=== PATIENT | female | born 1940 | race Caucasian/White ===

== ENCOUNTER 2022-12-20 21:00 | Inpatient (IN) | payer OTHER, BC ==
[2022-12-20 21:45] LABS: BASO % 0.2 % (0-2.0); EOS % 0.1 % (0-4.5); HEMATOCRIT 17.7 % (32.4-45.2); LYMPH % 7.9 % (8-40); MCH 30.5 pg (25.7-33.7); MEAN CELL VOLUME 92.4 fl (80-96); MONO % 4.5 % (3.8-10.2); NEUT % 87.3 % (42.8-82.8); PLATELET COUNT 148 10^3/uL (134-434); RBC 1.92 M/mm3 (3.60-5.2); RDW 17.4 % (11.6-15.6); WHITE BLOOD COUNT 18.1 K/mm3 (4.0-10.0)
[2022-12-20 21:52] LABS: HEMOGLOBIN 5.9 GM/dL (10.7-15.3)
[2022-12-20 21:59] LABS: ACTIVATED PTT 26.1 SECONDS (25.2-36.5); INR 1.1 (0.83-1.09); PROTHROMBIN TIME (PATIENT) 12.7 SEC (9.7-13.0)
[2022-12-20] MEDS ORDERED: VANCOMYCIN 1 GM/200 ML PREMIX BAG (RESTRICTED TO ID ONLY) IVPB ONE (22:01)
[2022-12-20] MEDS ORDERED: VANCOMYCIN 1 GM in D5W (PRE-DOCKED) 1,000 MG/250 ML IVPB ONE (22:01)
[2022-12-20] MEDS ORDERED: ACETAMINOPHEN 1000 MG/100 ML BAG IVPB ONE (22:02)
[2022-12-20] MEDS ORDERED: PIPERACILLIN/TAZOB 4.5 GM 4.5 GM in DEXTROSE 5%-WATER 100 ML IVPB ONE (22:02)
[2022-12-20 22:11] LABS: ALBUMIN 1.9 g/dl (3.4-5.0); BLOOD UREA NITROGEN 76.5 mg/dL (7-18); CALCIUM 7.9 mg/dL (8.5-10.1)
[2022-12-20 22:15] LABS: CREATININE 3.7 mg/dL (0.55-1.3)
[2022-12-20 22:16] LABS: BILIRUBIN,TOTAL 0.4 mg/dL (0.2-1); TOT PROT 5.7 g/dl (6.4-8.2)
[2022-12-20] MEDS ORDERED: PIPERACILLIN/TAZOB 4.5 GM 4.5 GM/100 ML BAG IVPB ONE (22:33)
[2022-12-20] MEDS ORDERED: VANCOMYCIN/WATER FOR INJ (PEG) 1,000 MG/200 ML BAG IVPB ONE (22:35)
[2022-12-20] MEDS: LACTATED RINGERS SOLUTION 1,000 ML/1,000 ML INFUS.BAG IV STA (22:49)
[2022-12-20 23:11] LABS: N-TERMINAL BNP 3385.7 pg/ml (5-450)
[2022-12-20 23:12] LABS: EPI CELLS 4 /uL (0-25.1); HYALINE CASTS 0 /uL (0-3.1); PH,URINE 5.5 (5.0-8.0); URINE APPEARANCE CLOUDY; URINE BACTERIA 8092 /uL (0-1359); URINE BILIRUBIN NEGATIVE (NEGATIVE); URINE COLOR YELLOW; URINE GLUCOSE (UA) NEGATIVE (NEGATIVE); URINE KETONE NEGATIVE (NEGATIVE); URINE LEUK ESTERASE 2+ (NEGATIVE); URINE NITRITE NEGATIVE (NEGATIVE); URINE PROTEIN 2+ (NEGATIVE); URINE UROBILINOGEN 0.2 mg/dL (0.2-1.0); URINE WBC 1092 /uL (0-25.8)
[2022-12-20] MEDS ORDERED: ALBUTEROL SO4 2.5/IPRATROPIUM 0.5 INH SOL 3 ML VIAL.NEB. NEB SCH (23:15)
[2022-12-20 23:16] LABS: URINE RBC 30.6 /uL (0-23.9)
[2022-12-21] MEDS: LACTATED RINGERS SOLUTION 1,000 ML/1,000 ML INFUS.BAG IV STA (02:13)
[2022-12-21] MEDS ORDERED: MEROPENEM 500 MG in DEXTROSE 5%-WATER 100 ML IVPB ONE (02:31)
[2022-12-21] MEDS ORDERED: MEROPENEM 500 MG VIAL (RESTRICTED TO ID) IVPB ONE (03:07)
[2022-12-21] MEDS ORDERED: DEXTROSE 5% IVPB ONE (03:30)
[2022-12-21] MEDS ORDERED: GENTAMICIN IVPB ONE (03:30)
[2022-12-21] MEDS ORDERED: WATER IVPB ONE (03:30)
[2022-12-21] MEDS ORDERED: ACETAMINOPHEN 325 MG TABLET (FP) PO PRN ×2 (03:47→21:24)
[2022-12-21 04:07] LABS: HEMATOCRIT 21.6 % (32.4-45.2); HEMOGLOBIN 7.1 GM/dL (10.7-15.3); MCH 30.7 pg (25.7-33.7); MCHC 33.1 g/dl (32.0-36.0); MEAN CELL VOLUME 92.8 fl (80-96); PLATELET COUNT 117 10^3/uL (134-434); RBC 2.33 M/mm3 (3.60-5.2); RDW 16.6 % (11.6-15.6); WHITE BLOOD COUNT 17.5 K/mm3 (4.0-10.0)
[2022-12-21] MEDS: SODIUM CHLORIDE 1,000 ML IV SCH ×2 (05:06→21:00)
[2022-12-21 06:52] LABS: ANISOCYTOSIS 1+; MACROCYTOSIS 0; OVALOCYTE 2+; TEAR DROP CELLS 2+
[2022-12-21] MEDS: INSULIN SLIDING SCALE (NOVOLOG) 1 VIAL SQ SCH ×5 (08:34→21:15)
[2022-12-21] MEDS ORDERED: PANTOPRAZOLE 40 MG TABLET PO SCH (10:00)
[2022-12-21] MEDS: MUPIROCIN 2% TOPICAL OINTMENT FOR DECOLONIZATION NS SCH ×3 (11:30→21:15)
[2022-12-21 14:00] LABS: HEMATOCRIT 21.5 % (32.4-45.2); MCH 30.3 pg (25.7-33.7); MCHC 32.7 g/dl (32.0-36.0); MEAN CELL VOLUME 92.7 fl (80-96); MEAN PLT VOLUME 10.3 fl (7.5-11.1); PLATELET COUNT 97 10^3/uL (134-434); RBC 2.32 M/mm3 (3.60-5.2); RDW 16.5 % (11.6-15.6); WHITE BLOOD COUNT 11.9 K/mm3 (4.0-10.0)
[2022-12-21] MEDS ORDERED: MEROPENEM 500 MG in DEXTROSE 5%-WATER 100 ML IVPB SCH (20:00)
[2022-12-21] MEDS ORDERED: BISACODYL 10 MG SUPP.RECT PR ONE (20:33)
[2022-12-21] MEDS ORDERED: SODIUM CHLORIDE 1,000 ML IV SCH (21:24)
[2022-12-21 21:31] LABS: BASO % 0.2 % (0-2.0); EOS % 0.7 % (0-4.5); HEMATOCRIT 19.4 % (32.4-45.2); LYMPH % 7.6 % (8-40); MCH 30.9 pg (25.7-33.7); MCHC 33.6 g/dl (32.0-36.0); MEAN PLT VOLUME 9.5 fl (7.5-11.1); MONO % 4.6 % (3.8-10.2); NEUT % 86.9 % (42.8-82.8); PLATELET COUNT 84 10^3/uL (134-434); RBC 2.11 M/mm3 (3.60-5.2); RDW 16.2 % (11.6-15.6); WHITE BLOOD COUNT 9.6 K/mm3 (4.0-10.0)
[2022-12-21 21:36] LABS: HEMOGLOBIN 6.5 GM/dL (10.7-15.3)
[2022-12-21 21:52] LABS: CALCIUM 7.7 mg/dL (8.5-10.1)
[2022-12-21 21:53] LABS: ALBUMIN 1.8 g/dl (3.4-5.0); BLOOD UREA NITROGEN 75.6 mg/dL (7-18); MAGNESIUM 1.9 mg/dL (1.8-2.4)
[2022-12-21 21:56] LABS: CREATININE 3.3 mg/dL (0.55-1.3); PHOSPHOROUS 4.6 mg/dL (2.5-4.9)
[2022-12-21 21:58] LABS: BILIRUBIN,TOTAL 0.4 mg/dL (0.2-1); TOT PROT 5.3 g/dl (6.4-8.2)
[2022-12-21] MEDS ORDERED: CHLORHEXIDINE GLUCONATE 4% CLEANSER FOR DECOLONIZATION TP SCH ×3 (22:00)
[2022-12-21] MEDS ORDERED: MUPIROCIN 2% TOPICAL OINTMENT FOR DECOLONIZATION NS SCH (22:00)
[2022-12-22] MEDS: INSULIN SLIDING SCALE (NOVOLOG) 1 VIAL SQ SCH ×4 (07:30→22:06)
[2022-12-22 07:32] LABS: HEMATOCRIT 24.6 % (32.4-45.2); HEMOGLOBIN 8.3 GM/dL (10.7-15.3); MCH 31.3 pg (25.7-33.7); MCHC 33.8 g/dl (32.0-36.0); MEAN CELL VOLUME 92.7 fl (80-96); MEAN PLT VOLUME 10.3 fl (7.5-11.1); PLATELET COUNT 89 10^3/uL (134-434); RBC 2.65 M/mm3 (3.60-5.2); RDW 15.5 % (11.6-15.6)
[2022-12-22 07:41] LABS: CALCIUM 7.9 mg/dL (8.5-10.1)
[2022-12-22 07:42] LABS: ALBUMIN 1.8 g/dl (3.4-5.0); BLOOD UREA NITROGEN 71.8 mg/dL (7-18); MAGNESIUM 2.1 mg/dL (1.8-2.4)
[2022-12-22 07:44] LABS: PHOSPHOROUS 4.6 mg/dL (2.5-4.9)
[2022-12-22 07:45] LABS: CREATININE 3.1 mg/dL (0.55-1.3)
[2022-12-22 07:46] LABS: BILIRUBIN,TOTAL 0.4 mg/dL (0.2-1); TOT PROT 5.5 g/dl (6.4-8.2)
[2022-12-22] MEDS ORDERED: MEROPENEM 500 MG in DEXTROSE 5%-WATER 100 ML IVPB SCH ×2 (09:00→22:00)
[2022-12-22] MEDS: MUPIROCIN 2% TOPICAL OINTMENT FOR DECOLONIZATION NS SCH (09:27)
[2022-12-22 09:57] LABS: EPI CELLS 3 /uL (0-25.1); HYALINE CASTS 1 /uL (0-3.1); PH,URINE 5.5 (5.0-8.0); URINE APPEARANCE CLEAR; URINE BACTERIA 11 /uL (0-1359); URINE BILIRUBIN NEGATIVE (NEGATIVE); URINE COLOR ORANGE; URINE GLUCOSE (UA) NEGATIVE (NEGATIVE); URINE KETONE NEGATIVE (NEGATIVE); URINE LEUK ESTERASE 1+ (NEGATIVE); URINE NITRITE NEGATIVE (NEGATIVE); URINE PROTEIN 2+ (NEGATIVE); URINE RBC 6349 /uL (0-23.9); URINE UROBILINOGEN 0.2 mg/dL (0.2-1.0); URINE WBC 22 /uL (0-25.8)
[2022-12-22] MEDS ORDERED: PANTOPRAZOLE 40 MG TABLET PO SCH (10:00)
[2022-12-22] MEDS ORDERED: POLYETHYLENE GLYCOL (HEALTHYLAX) 3350 17 GM PACKET PO SCH (10:00)
[2022-12-22] MEDS ORDERED: SODIUM CHLORIDE 1,000 ML IV SCH (21:16)
[2022-12-22] MEDS: POLYETHYLENE GLYCOL (HEALTHYLAX) 3350 17 GM PACKET PO SCH (21:55)
[2022-12-22] MEDS: MEROPENEM 500 MG in DEXTROSE 5%-WATER 100 ML IVPB SCH (21:56)
[2022-12-22] MEDS ORDERED: MUPIROCIN 2% TOPICAL OINTMENT FOR DECOLONIZATION NS SCH (22:00)
[2022-12-22] MEDS ORDERED: CHLORHEXIDINE GLUCONATE 4% CLEANSER FOR DECOLONIZATION TP SCH (22:00)
[2022-12-23] MEDS: INSULIN SLIDING SCALE (NOVOLOG) 1 VIAL SQ SCH ×4 (06:44→22:55)
[2022-12-23 09:20] LABS: BASO % 0.4 % (0-2.0); EOS % 1.4 % (0-4.5); HEMATOCRIT 25.1 % (32.4-45.2); HEMOGLOBIN 8.4 GM/dL (10.7-15.3); LYMPH % 8.5 % (8-40); MCH 30.9 pg (25.7-33.7); MCHC 33.5 g/dl (32.0-36.0); MEAN CELL VOLUME 92.3 fl (80-96); MEAN PLT VOLUME 9.8 fl (7.5-11.1); MONO % 7.8 % (3.8-10.2); NEUT % 81.9 % (42.8-82.8); PLATELET COUNT 109 10^3/uL (134-434); RBC 2.72 M/mm3 (3.60-5.2); RDW 15.4 % (11.6-15.6); WHITE BLOOD COUNT 7.2 K/mm3 (4.0-10.0)
[2022-12-23] MEDS: MEROPENEM 500 MG in DEXTROSE 5%-WATER 100 ML IVPB SCH (09:36)
[2022-12-23] MEDS: POLYETHYLENE GLYCOL (HEALTHYLAX) 3350 17 GM PACKET PO SCH ×2 (09:37→21:01)
[2022-12-23] MEDS: PANTOPRAZOLE 40 MG TABLET PO SCH (09:37)
[2022-12-23 09:48] LABS: ALBUMIN 1.8 g/dl (3.4-5.0); BLOOD UREA NITROGEN 60.7 mg/dL (7-18)
[2022-12-23 09:50] LABS: CREATININE 2.3 mg/dL (0.55-1.3)
[2022-12-23 09:52] LABS: TOT PROT 5.7 g/dl (6.4-8.2)
[2022-12-23 09:53] LABS: BILIRUBIN,TOTAL 0.5 mg/dL (0.2-1)
[2022-12-23] MEDS: SODIUM CHLORIDE 0.45% 1,000 ML IV SCH (13:00)
[2022-12-23] MEDS ORDERED: VANCOMYCIN/WATER FOR INJ (PEG) 1,000 MG/200 ML BAG IVPB ONE (13:30)
[2022-12-23] MEDS: ERTAPENEM SODIUM 0.5 GM in SODIUM CHLORIDE 50 ML IVPB SCH (15:15)
[2022-12-23] MEDS: ACETAMINOPHEN 325 MG TABLET (FP) PO PRN (21:01)
[2022-12-24] MEDS: INSULIN SLIDING SCALE (NOVOLOG) 1 VIAL SQ SCH ×4 (06:51→21:42)
[2022-12-24] MEDS: ERTAPENEM SODIUM 0.5 GM in SODIUM CHLORIDE 50 ML IVPB SCH (09:17)
[2022-12-24] MEDS: PANTOPRAZOLE 40 MG TABLET PO SCH (09:43)
[2022-12-24] MEDS: SODIUM CHLORIDE 0.45% 1,000 ML IV SCH ×3 (09:43→23:24)
[2022-12-24] MEDS: POLYETHYLENE GLYCOL (HEALTHYLAX) 3350 17 GM PACKET PO SCH ×2 (09:43→21:47)
[2022-12-24] MEDS: ACETAMINOPHEN 325 MG TABLET (FP) PO PRN (16:02)
[2022-12-24 16:28] VITALS: BMI 32.9
[2022-12-24] MEDS: AMPICILLIN - 2 GM in SODIUM CHLORIDE 100 ML IVPB SCH (17:35)
[2022-12-24 19:22] LABS: BASO % 0.3 % (0-2.0); EOS % 1.9 % (0-4.5); HEMATOCRIT 23.3 % (32.4-45.2); HEMOGLOBIN 7.8 GM/dL (10.7-15.3); LYMPH % 10.8 % (8-40); MCH 30.9 pg (25.7-33.7); MCHC 33.4 g/dl (32.0-36.0); MEAN CELL VOLUME 92.4 fl (80-96); MEAN PLT VOLUME 10.1 fl (7.5-11.1); MONO % 7.8 % (3.8-10.2); NEUT % 79.2 % (42.8-82.8); PLATELET COUNT 133 10^3/uL (134-434); RBC 2.52 M/mm3 (3.60-5.2); RDW 15.2 % (11.6-15.6); WHITE BLOOD COUNT 9.2 K/mm3 (4.0-10.0)
[2022-12-24 19:49] LABS: BLOOD UREA NITROGEN 44.6 mg/dL (7-18); CALCIUM 7.9 mg/dL (8.5-10.1)
[2022-12-24 19:50] LABS: ALBUMIN 1.7 g/dl (3.4-5.0)
[2022-12-24 19:53] LABS: CREATININE 1.8 mg/dL (0.55-1.3)
[2022-12-24 19:54] LABS: BILIRUBIN,TOTAL 0.6 mg/dL (0.2-1); TOT PROT 5.4 g/dl (6.4-8.2)
[2022-12-24 20:48] LABS: ANISOCYTOSIS 2+; MACROCYTOSIS 0; OVALOCYTE 1+; TEAR DROP CELLS 1+
[2022-12-25] MEDS: AMPICILLIN - 2 GM in SODIUM CHLORIDE 100 ML IVPB SCH ×3 (05:42→21:46)
[2022-12-25] MEDS: INSULIN SLIDING SCALE (NOVOLOG) 1 VIAL SQ SCH ×4 (06:43→21:56)
[2022-12-25] MEDS: ERTAPENEM SODIUM 0.5 GM in SODIUM CHLORIDE 50 ML IVPB SCH (09:12)
[2022-12-25] MEDS: PANTOPRAZOLE 40 MG TABLET PO SCH (09:12)
[2022-12-25] MEDS: POLYETHYLENE GLYCOL (HEALTHYLAX) 3350 17 GM PACKET PO SCH ×2 (09:12→21:47)
[2022-12-25 09:28] LABS: BASO % 0.5 % (0-2.0); EOS % 1.3 % (0-4.5); HEMATOCRIT 25.1 % (32.4-45.2); HEMOGLOBIN 8.3 GM/dL (10.7-15.3); LYMPH % 7.9 % (8-40); MCH 30.7 pg (25.7-33.7); MCHC 33.3 g/dl (32.0-36.0); MEAN CELL VOLUME 92.2 fl (80-96); MEAN PLT VOLUME 10.4 fl (7.5-11.1); MONO % 7.9 % (3.8-10.2); NEUT % 82.4 % (42.8-82.8); PLATELET COUNT 154 10^3/uL (134-434); RBC 2.72 M/mm3 (3.60-5.2); RDW 15.3 % (11.6-15.6); WHITE BLOOD COUNT 9.8 K/mm3 (4.0-10.0)
[2022-12-25 09:48] LABS: BLOOD UREA NITROGEN 39.5 mg/dL (7-18); CALCIUM 8.1 mg/dL (8.5-10.1)
[2022-12-25 09:49] LABS: ALBUMIN 1.7 g/dl (3.4-5.0)
[2022-12-25 09:51] LABS: CREATININE 1.7 mg/dL (0.55-1.3)
[2022-12-25 09:53] LABS: BILIRUBIN,TOTAL 0.8 mg/dL (0.2-1); TOT PROT 5.6 g/dl (6.4-8.2)
[2022-12-25] MEDS ORDERED: INSULIN (NOVOLOG) ASPART 100 UNITS/ML 10ML VIAL ONE (11:51)
[2022-12-25] MEDS: SODIUM CHLORIDE 0.45% 1,000 ML IV SCH ×2 (11:55→21:46)
[2022-12-25] MEDS ORDERED: ACETAMINOPHEN 1000 MG/100 ML BAG IVPB ONE (15:26)
[2022-12-25] MEDS ORDERED: VANCOMYCIN 1 GM/200 ML PREMIX BAG (RESTRICTED TO ID ONLY) IVPB ONE (15:33)
[2022-12-25 18:52] LABS: HEMATOCRIT 22.7 % (32.4-45.2); HEMOGLOBIN 7.6 GM/dL (10.7-15.3); MCH 30.9 pg (25.7-33.7); MCHC 33.4 g/dl (32.0-36.0); MEAN CELL VOLUME 92.5 fl (80-96); MEAN PLT VOLUME 9.9 fl (7.5-11.1); PLATELET COUNT 139 10^3/uL (134-434); RBC 2.45 M/mm3 (3.60-5.2); RDW 15.6 % (11.6-15.6); WHITE BLOOD COUNT 9.5 K/mm3 (4.0-10.0)
[2022-12-26 00:58] LABS: HEMATOCRIT 22.6 % (32.4-45.2); HEMOGLOBIN 7.7 GM/dL (10.7-15.3); MCH 31.3 pg (25.7-33.7); MEAN CELL VOLUME 92.1 fl (80-96); MEAN PLT VOLUME 9.4 fl (7.5-11.1); PLATELET COUNT 147 10^3/uL (134-434); RBC 2.45 M/mm3 (3.60-5.2); RDW 15.3 % (11.6-15.6); WHITE BLOOD COUNT 9.6 K/mm3 (4.0-10.0)
[2022-12-26] MEDS: AMPICILLIN - 2 GM in SODIUM CHLORIDE 100 ML IVPB SCH ×3 (05:39→22:00)
[2022-12-26] MEDS: INSULIN SLIDING SCALE (NOVOLOG) 1 VIAL SQ SCH ×4 (06:44→22:01)
[2022-12-26 08:55] LABS: HEMATOCRIT 23.4 % (32.4-45.2); HEMOGLOBIN 7.9 GM/dL (10.7-15.3); MCH 31.5 pg (25.7-33.7); MCHC 33.8 g/dl (32.0-36.0); MEAN CELL VOLUME 93.3 fl (80-96); MEAN PLT VOLUME 10.1 fl (7.5-11.1); PLATELET COUNT 156 10^3/uL (134-434); RDW 15.7 % (11.6-15.6); WHITE BLOOD COUNT 10.2 K/mm3 (4.0-10.0)
[2022-12-26] MEDS: PANTOPRAZOLE 40 MG TABLET PO SCH (10:57)
[2022-12-26] MEDS: POLYETHYLENE GLYCOL (HEALTHYLAX) 3350 17 GM PACKET PO SCH ×2 (10:57→22:01)
[2022-12-26] MEDS: ERTAPENEM SODIUM 1 GM in SODIUM CHLORIDE 50 ML IVPB SCH (11:03)
[2022-12-26] MEDS ORDERED: INSULIN (NOVOLOG) ASPART 100 UNITS/ML 10ML VIAL ONE (11:37)
[2022-12-26] MEDS: ACETAMINOPHEN 325 MG TABLET (FP) PO PRN ×2 (14:01→22:43)
[2022-12-26 14:04] LABS: HEMATOCRIT 24.4 % (32.4-45.2); HEMOGLOBIN 8.2 GM/dL (10.7-15.3); MCH 30.9 pg (25.7-33.7); MCHC 33.4 g/dl (32.0-36.0); MEAN CELL VOLUME 92.8 fl (80-96); MEAN PLT VOLUME 10.4 fl (7.5-11.1); PLATELET COUNT 162 10^3/uL (134-434); RBC 2.63 M/mm3 (3.60-5.2); RDW 15.2 % (11.6-15.6); WHITE BLOOD COUNT 10.7 K/mm3 (4.0-10.0)
[2022-12-26] MEDS: SODIUM CHLORIDE 0.45% 1,000 ML IV SCH ×2 (14:33→17:36)
[2022-12-26] MEDS: DONEPEZIL HCL 5 MG TABLET (FP) PO SCH (22:01)
[2022-12-27] MEDS: AMPICILLIN - 2 GM in SODIUM CHLORIDE 100 ML IVPB SCH ×3 (06:44→23:28)
[2022-12-27] MEDS: INSULIN SLIDING SCALE (NOVOLOG) 1 VIAL SQ SCH ×4 (06:45→23:36)
[2022-12-27 09:01] LABS: BASO % 0.2 % (0-2.0); EOS % 1.2 % (0-4.5); HEMATOCRIT 25.4 % (32.4-45.2); HEMOGLOBIN 8.7 GM/dL (10.7-15.3); MCH 31.7 pg (25.7-33.7); MCHC 34.1 g/dl (32.0-36.0); MEAN PLT VOLUME 9.9 fl (7.5-11.1); MONO % 7.1 % (3.8-10.2); NEUT % 83.5 % (42.8-82.8); PLATELET COUNT 185 10^3/uL (134-434); RBC 2.74 M/mm3 (3.60-5.2); RDW 15.5 % (11.6-15.6); WHITE BLOOD COUNT 10.1 K/mm3 (4.0-10.0)
[2022-12-27 09:34] LABS: ALBUMIN 1.8 g/dl (3.4-5.0); BLOOD UREA NITROGEN 30.4 mg/dL (7-18); CALCIUM 8.2 mg/dL (8.5-10.1)
[2022-12-27 09:37] LABS: CREATININE 1.4 mg/dL (0.55-1.3)
[2022-12-27 09:38] LABS: BILIRUBIN,TOTAL 0.7 mg/dL (0.2-1)
[2022-12-27] MEDS: POLYETHYLENE GLYCOL (HEALTHYLAX) 3350 17 GM PACKET PO SCH (11:00)
[2022-12-27] MEDS: ERTAPENEM SODIUM 1 GM in SODIUM CHLORIDE 50 ML IVPB SCH (11:07)
[2022-12-27] MEDS: PANTOPRAZOLE 40 MG TABLET PO SCH (11:07)
[2022-12-27] MEDS ORDERED: INSULIN (NOVOLOG) ASPART 100 UNITS/ML 10ML VIAL ONE (11:49)
[2022-12-27] MEDS: SODIUM CHLORIDE 0.45% 1,000 ML IV SCH (18:06)
[2022-12-27] MEDS: ACETAMINOPHEN 325 MG TABLET (FP) PO PRN (18:31)
[2022-12-27] MEDS: DONEPEZIL HCL 5 MG TABLET (FP) PO SCH (23:30)
[2022-12-28] MEDS: POLYETHYLENE GLYCOL (HEALTHYLAX) 3350 17 GM PACKET PO SCH ×3 (02:05→21:38)
[2022-12-28] MEDS: AMPICILLIN - 2 GM in SODIUM CHLORIDE 100 ML IVPB SCH ×3 (06:37→21:39)
[2022-12-28] MEDS: INSULIN SLIDING SCALE (NOVOLOG) 1 VIAL SQ SCH ×4 (06:43→21:51)
[2022-12-28] MEDS: ERTAPENEM SODIUM 1 GM in SODIUM CHLORIDE 50 ML IVPB SCH (09:36)
[2022-12-28] MEDS: PANTOPRAZOLE 40 MG TABLET PO SCH (09:39)
[2022-12-28] MEDS: ACETAMINOPHEN 325 MG TABLET (FP) PO PRN (14:00)
[2022-12-28] MEDS: levETIRAcetam 250 MG TABLET PO SCH (21:38)
[2022-12-28] MEDS: DONEPEZIL HCL 5 MG TABLET (FP) PO SCH (21:38)
[2022-12-28] MEDS: SODIUM CHLORIDE 0.45% 1,000 ML IV SCH (21:50)
[2022-12-29] MEDS: AMPICILLIN - 2 GM in SODIUM CHLORIDE 100 ML IVPB SCH ×3 (06:54→23:26)
[2022-12-29] MEDS: INSULIN SLIDING SCALE (NOVOLOG) 1 VIAL SQ SCH ×3 (06:57→16:47)
[2022-12-29] MEDS: ERTAPENEM SODIUM 1 GM in SODIUM CHLORIDE 50 ML IVPB SCH (11:05)
[2022-12-29] MEDS: POLYETHYLENE GLYCOL (HEALTHYLAX) 3350 17 GM PACKET PO SCH ×2 (11:07→23:26)
[2022-12-29] MEDS: PANTOPRAZOLE 40 MG TABLET PO SCH (11:11)
[2022-12-29] MEDS: levETIRAcetam 250 MG TABLET PO SCH ×2 (11:11→23:26)
[2022-12-29] MEDS: DONEPEZIL HCL 5 MG TABLET (FP) PO SCH (23:36)
[2022-12-30] MEDS: INSULIN SLIDING SCALE (NOVOLOG) 1 VIAL SQ SCH ×5 (00:01→22:13)
[2022-12-30] MEDS: AMPICILLIN - 2 GM in SODIUM CHLORIDE 100 ML IVPB SCH ×3 (05:58→21:47)
[2022-12-30] MEDS: POLYETHYLENE GLYCOL (HEALTHYLAX) 3350 17 GM PACKET PO SCH ×2 (10:28→21:48)
[2022-12-30] MEDS: levETIRAcetam 250 MG TABLET PO SCH ×2 (10:28→21:48)
[2022-12-30] MEDS: ERTAPENEM SODIUM 1 GM in SODIUM CHLORIDE 50 ML IVPB SCH (10:29)
[2022-12-30] MEDS: PANTOPRAZOLE 40 MG TABLET PO SCH (10:31)
[2022-12-30 11:20] LABS: ALBUMIN 1.7 g/dl (3.4-5.0); BLOOD UREA NITROGEN 18.7 mg/dL (7-18); CALCIUM 8.3 mg/dL (8.5-10.1)
[2022-12-30 11:23] LABS: CREATININE 1.2 mg/dL (0.55-1.3)
[2022-12-30 11:25] LABS: BILIRUBIN,TOTAL 0.6 mg/dL (0.2-1); TOT PROT 5.7 g/dl (6.4-8.2)
[2022-12-30] MEDS: DONEPEZIL HCL 5 MG TABLET (FP) PO SCH (21:48)
[2022-12-31] MEDS: INSULIN SLIDING SCALE (NOVOLOG) 1 VIAL SQ SCH ×4 (06:58→23:23)
[2022-12-31] MEDS: AMPICILLIN - 2 GM in SODIUM CHLORIDE 100 ML IVPB SCH ×2 (06:58→15:09)
[2022-12-31] MEDS: levETIRAcetam 250 MG TABLET PO SCH ×2 (09:43→22:59)
[2022-12-31] MEDS: POLYETHYLENE GLYCOL (HEALTHYLAX) 3350 17 GM PACKET PO SCH ×2 (09:43→23:01)
[2022-12-31] MEDS: PANTOPRAZOLE 40 MG TABLET PO SCH (09:43)
[2022-12-31] MEDS: ERTAPENEM SODIUM 1 GM in SODIUM CHLORIDE 50 ML IVPB SCH (10:30)
[2022-12-31] MEDS ORDERED: REMDESIVIR 200 MG in SODIUM CHLORIDE 250 ML IVPB ONE ×2 (14:59→15:00)
[2022-12-31] MEDS: DONEPEZIL HCL 5 MG TABLET (FP) PO SCH (22:58)
[2022-12-31] MEDS: ACETAMINOPHEN 325 MG TABLET (FP) PO PRN (22:59)
[2023-01-01] MEDS: AMPICILLIN - 2 GM in SODIUM CHLORIDE 100 ML IVPB SCH ×2 (00:03→07:51)
[2023-01-01] MEDS: INSULIN SLIDING SCALE (NOVOLOG) 1 VIAL SQ SCH ×4 (08:38→23:10)
[2023-01-01] MEDS: ERTAPENEM SODIUM 1 GM in SODIUM CHLORIDE 50 ML IVPB SCH (10:55)
[2023-01-01] MEDS: levETIRAcetam 250 MG TABLET PO SCH ×2 (10:59→22:48)
[2023-01-01] MEDS: PANTOPRAZOLE 40 MG TABLET PO SCH (10:59)
[2023-01-01] MEDS: POLYETHYLENE GLYCOL (HEALTHYLAX) 3350 17 GM PACKET PO SCH ×2 (10:59→22:47)
[2023-01-01] MEDS ORDERED: REMDESIVIR 100 MG in SODIUM CHLORIDE 250 ML IVPB SCH (15:00)
[2023-01-01] MEDS: REMDESIVIR 100 MG in SODIUM CHLORIDE 250 ML IVPB SCH (15:24)
[2023-01-01] MEDS: DONEPEZIL HCL 5 MG TABLET (FP) PO SCH (22:47)
[2023-01-02] MEDS: INSULIN SLIDING SCALE (NOVOLOG) 1 VIAL SQ SCH ×4 (06:01→23:16)
[2023-01-02 08:46] LABS: HEMATOCRIT 20.9 % (32.4-45.2); HEMOGLOBIN 7.1 GM/dL (10.7-15.3); MCH 31.3 pg (25.7-33.7); MCHC 34.1 g/dl (32.0-36.0); MEAN CELL VOLUME 91.7 fl (80-96); MEAN PLT VOLUME 8.4 fl (7.5-11.1); PLATELET COUNT 304 10^3/uL (134-434); RBC 2.27 M/mm3 (3.60-5.2); RDW 14.9 % (11.6-15.6); WHITE BLOOD COUNT 7.5 K/mm3 (4.0-10.0)
[2023-01-02 09:19] LABS: CALCIUM 8.5 mg/dL (8.5-10.1)
[2023-01-02 09:20] LABS: ALBUMIN 1.7 g/dl (3.4-5.0)
[2023-01-02 09:23] LABS: CREATININE 1.1 mg/dL (0.55-1.3)
[2023-01-02 09:24] LABS: TOT PROT 5.8 g/dl (6.4-8.2)
[2023-01-02 09:26] LABS: BILIRUBIN,TOTAL 0.7 mg/dL (0.2-1)
[2023-01-02] MEDS: PANTOPRAZOLE 40 MG TABLET PO SCH (10:05)
[2023-01-02] MEDS: POLYETHYLENE GLYCOL (HEALTHYLAX) 3350 17 GM PACKET PO SCH ×2 (10:05→23:16)
[2023-01-02] MEDS: levETIRAcetam 250 MG TABLET PO SCH ×2 (10:05→23:14)
[2023-01-02] MEDS: REMDESIVIR 100 MG in SODIUM CHLORIDE 250 ML IVPB SCH (16:42)
[2023-01-02] MEDS: ACETAMINOPHEN 325 MG TABLET (FP) PO PRN (17:42)
[2023-01-02] MEDS: DONEPEZIL HCL 5 MG TABLET (FP) PO SCH (23:15)
[2023-01-03] MEDS: ACETAMINOPHEN 325 MG TABLET (FP) PO PRN (05:19)
[2023-01-03] MEDS: INSULIN SLIDING SCALE (NOVOLOG) 1 VIAL SQ SCH ×5 (06:35→21:13)
[2023-01-03 09:45] LABS: HEMATOCRIT 24.2 % (32.4-45.2); HEMOGLOBIN 8.3 GM/dL (10.7-15.3); MCH 31.6 pg (25.7-33.7); MCHC 34.4 g/dl (32.0-36.0); MEAN CELL VOLUME 91.8 fl (80-96); MEAN PLT VOLUME 8.3 fl (7.5-11.1); PLATELET COUNT 349 10^3/uL (134-434); RBC 2.64 M/mm3 (3.60-5.2); RDW 15.5 % (11.6-15.6); WHITE BLOOD COUNT 7.9 K/mm3 (4.0-10.0)
[2023-01-03 10:19] LABS: BLOOD UREA NITROGEN 20.8 mg/dL (7-18); CALCIUM 8.7 mg/dL (8.5-10.1); CREATININE 1.3 mg/dL (0.55-1.3)
[2023-01-03] MEDS: PANTOPRAZOLE 40 MG TABLET PO SCH (11:52)
[2023-01-03] MEDS: POLYETHYLENE GLYCOL (HEALTHYLAX) 3350 17 GM PACKET PO SCH ×2 (11:52→21:14)
[2023-01-03] MEDS: levETIRAcetam 250 MG TABLET PO SCH ×2 (11:52→21:13)
[2023-01-03] MEDS ORDERED: INSULIN (NOVOLOG) ASPART 100 UNITS/ML 10ML VIAL ONE (13:08)
[2023-01-03] MEDS: DONEPEZIL HCL 5 MG TABLET (FP) PO SCH (21:13)
[2023-01-04] MEDS: INSULIN SLIDING SCALE (NOVOLOG) 1 VIAL SQ SCH ×4 (06:00→23:00)
[2023-01-04] MEDS: POLYETHYLENE GLYCOL (HEALTHYLAX) 3350 17 GM PACKET PO SCH ×3 (10:43→23:28)
[2023-01-04] MEDS: PANTOPRAZOLE 40 MG TABLET PO SCH (10:43)
[2023-01-04] MEDS: levETIRAcetam 250 MG TABLET PO SCH ×2 (10:43→22:53)
[2023-01-04 15:35] VITALS: RESP 19
[2023-01-04] MEDS: DONEPEZIL HCL 5 MG TABLET (FP) PO SCH (22:54)
[2023-01-05] MEDS: ACETAMINOPHEN 325 MG TABLET (FP) PO PRN (07:10)
[2023-01-05] MEDS: INSULIN SLIDING SCALE (NOVOLOG) 1 VIAL SQ SCH ×3 (08:04→17:06)
[2023-01-05 10:16] LABS: ALBUMIN 1.8 g/dl (3.4-5.0); BLOOD UREA NITROGEN 18.4 mg/dL (7-18); CALCIUM 8.5 mg/dL (8.5-10.1)
[2023-01-05 10:19] LABS: CREATININE 1.1 mg/dL (0.55-1.3)
[2023-01-05 10:21] LABS: BILIRUBIN,TOTAL 0.5 mg/dL (0.2-1); TOT PROT 6.2 g/dl (6.4-8.2)
[2023-01-05] MEDS: PANTOPRAZOLE 40 MG TABLET PO SCH (10:53)
[2023-01-05] MEDS: POLYETHYLENE GLYCOL (HEALTHYLAX) 3350 17 GM PACKET PO SCH (10:59)
[2023-01-05] MEDS: levETIRAcetam 250 MG TABLET PO SCH (10:59)
[2023-01-05 15:21] VITALS: BP 123/59; PULSE 87; TEMP 99.4
== END 2023-01-05 18:37 | DRG 853 ==
LOC: JER 21:00 → JERBED 23:56 → JICU 12-21 08:19 → J7W 12-22 20:42 → J8W 12-23 12:48
PROVIDERS: ADMIT Internal Medicine Pulmonary Disease; ATTEND Family Medicine
PROC: 0TJ53ZZ Inspection of Kidney, Percutaneous Approach (ICD-10-PCS; 2022-12-21)
PROC: 0T768DZ Dilation of Right Ureter with Intraluminal Device, Via Natural or Artificial Opening Endoscopic (ICD-10-PCS; principal; 2022-12-21 13:00)
PROC: BT1DZZZ Fluoroscopy of Right Kidney, Ureter and Bladder (ICD-10-PCS; 2022-12-21 13:00)
PROC: 4A10X4Z Monitoring of Central Nervous Electrical Activity, External Approach (ICD-10-PCS; 2022-12-31)
PROC: XW033E5 Introduction of Remdesivir Anti-infective into Peripheral Vein, Percutaneous Approach, New Technology Group 5 (ICD-10-PCS; 2022-12-31)
DX: A41.81 Sepsis due to Enterococcus (principal); U07.1 COVID-19; N13.6 Pyonephrosis; N17.9 Acute kidney failure, unspecified; D62 Acute posthemorrhagic anemia; I12.9 Hypertensive chronic kidney disease with stage 1 through stage 4 chronic kidney disease, or unspecified chronic kidney disease; E11.22 Type 2 diabetes mellitus with diabetic chronic kidney disease; N18.9 Chronic kidney disease, unspecified; K59.00 Constipation, unspecified; E87.5 Hyperkalemia; T83.022A Displacement of nephrostomy catheter, initial encounter; N13.9 Obstructive and reflux uropathy, unspecified; Z86.011 Personal history of benign neoplasm of the brain; G30.9 Alzheimer's disease, unspecified; F02.80 Dementia in other diseases classified elsewhere, unspecified severity, without behavioral disturbance, psychotic disturbance, mood disturbance, and anxiety; Y83.8 Other surgical procedures as the cause of abnormal reaction of the patient, or of later complication, without mention of misadventure at the time of the procedure
CPT/HCPCS: 0241U-QW; 36415; 36430; 50432; 70450-TC; 71045-TC-FY; 71250-TC; 74176-TC; 76000-TC-FY; 80048; 80053; 81003; 82436; 82570; 82607; 82746; 82962; 83036; 83605; 83735; 83880; 84100; 84133; 84155; 84156; 84165; 84300; 84443; 84484; 85025; 85027; 85610; 85730; 86140; 86850; 86900; 86901; 86922; 87040; 87070; 87075; 87086; 87102; 87116; 87186; 87205; 87206; 87210; 93005; 93010; 93970-TC; 95816; 99285-25; C1758; C1769; C2617; C9399; C9803-CS; P9058; U0003; U0005